=== PATIENT | female | born 1955 | race Hispanic/Latino ===

== ENCOUNTER 2017-08-26 07:44 | Outpatient (CLI) | payer OTHER ==
--- NOTE | 2017-08-26 08:34 | RAD ---
LEFT SHOULDER THREE VIEWS: History: Shoulder pain. FINDINGS: No evidence of fracture or dislocation. AC Joint normally aligned. IMPRESSION: No acute abnormality. POS: [facility]
== END 2017-08-26 07:45 | disposition home or self-care (01) ==
LOC: RAD-FRANK 07:44
PROVIDERS: ATTEND Nurse Practitioner Family
DX: M25.512 Pain in left shoulder (principal)